=== PATIENT | male | born 1955 | race Caucasian/White ===

== ENCOUNTER 2017-01-10 12:10 | Emergency (ER) | payer OTHER ==
[~2017-01-10] VITALS: Ht 193 cm; Wt 106.6 kg
[~2017-01-10 12:10] MED LIST: FENO160T PO; FINA5TAB PO; GLIM4TAB2 PO; LEVO500T38 PO; LISI1TAB7 PO; METF500T4 PO; SIMV40TA3 PO; TAMS0.4C97 PO
[2017-01-10] MEDS ORDERED: MECLIZINE HCL 12.5 MG TABLET. PO ONE (13:00)
[2017-01-10] MEDS ORDERED: IV NORMAL SALINE 500ML BAG 500 ML IV ONE (13:00)
[2017-01-10 13:03] LABS: BASO % 0 % (0-3); EOS % 1 % (0-3); HEMATOCRIT 40.8 % (39.0-53.0); LYMPH % 13 % (24-48); MEAN CORPUSCULAR HEMOGLOBIN 28 pg (25-35); MEAN CORPUSCULAR HGB CONC 34 g/dL (31-37); MEAN CORPUSCULAR VOLUME 80 fL (79-100); MONO % 5 % (0-9); NEUT % 81 % (31-73); PLATELET COUNT 154 x10^3/uL (140-400); RED BLOOD COUNT 5.07 x10^6/uL (4.30-5.70); RED CELL DISTRIBUTION WIDTH 13.5 % (11.5-14.5); WHITE BLOOD COUNT 8.3 x10^3/uL (4.0-11.0)
[2017-01-10 13:08] LABS: CALCIUM 9.1 mg/dL (8.5-10.1); CREATININE 0.8 mg/dL (0.7-1.3); POTASSIUM 3.8 mmol/L (3.5-5.1)
--- NOTE | 2017-01-10 13:14 | EKG ---
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
[2017-01-10 13:15] LABS: ALBUMIN 4.2 g/dL (3.4-5.0); DIRECT BILIRUBIN 0.2 mg/dL (0.0-0.2); TOTAL BILIRUBIN 0.7 mg/dL (0.2-1.0); TOTAL PROTEIN 6.9 g/dL (6.4-8.2)
--- NOTE | 2017-01-10 13:29 | RAD ---
Clinical Indication: Vertigo Technique: Study is dated January 10, 2017. CT images of the head were obtained from the skull base to the vertex without IV contrast. Comparison is from February 07, 2005. One or more of the following individualized dose reduction techniques were utilized for this examination: 1. Automated exposure control 2. Adjustment of the mA and/or kV according to patient size 3. Use of iterative reconstruction technique Findings: There is diffuse, symmetric prominence of the ventricles and subarachnoid spaces consistent with age-related parenchymal volume loss. There are areas of scattered decreased attenuation in the supratentorial white matter. While nonspecific, findings are likely secondary to minimal small vessel ischemic disease. There is no hemorrhage, extraaxial fluid collection, mass, or midline shift. There is no large vascular distribution infarct. The posterior fossa and brain stem are unremarkable. Orbits are normal. There is right maxillary mucosal thickening. Maxillary sinuses are small. Deformity of the anterior wall of the frontal sinuses and nasal bone may be sequela of remote trauma. There is no skull fracture appreciated on bone level images. Impression: No acute intracranial findings. Brain parenchymal volume loss and probable small vessel ischemic disease.
[2017-01-10 13:30] VITALS: BP 145/81
--- NOTE | 2017-01-10 13:30 | RAD ---
Indication: Dizziness, lightheadedness, nausea and vomiting. Technique: Upright portable chest radiograph was obtained. No comparison is available. Findings: The lungs are clear. The cardiopulmonary silhouette is within normal limits. There is atheromatous disease in the thoracic aorta. Leads overlie the patient. There are degenerative changes in the shoulders. Impression: No active pulmonary disease.
[2017-01-10 14:06] LABS: BILIRUBIN,URINE NEGATIVE (NEG); GLUCOSE,URINE NEGATIVE (NEG); NITRITE,URINE NEGATIVE (NEG); PH,URINE 6.5; PROTEIN,URINE NEGATIVE (NEG-TRACE)
--- NOTE | 2017-01-10 14:20 | PHYS DOC ---
Past Medical History Past Medical History: Diabetes-Type II, Hypertension, Other Additional Past Medical Histor: enlarged prostate Past Surgical History: Cholecystectomy Additional Past Surgical Histo: herniated disc Alcohol Use: Rarely Drug Use: None Adult General Chief Complaint Chief Complaint: DIZZY/LIGHT HEADED HPI HPI 61-year-old male presenting to the emergency department today with vertigo. He also complains of nausea with vomiting. His vomitus is nonbloody and nonbilious. His blood sugar was mildly elevated in clinic. He was sent here for further evaluation workup and care. His symptoms started earlier this morning around 8 AM. He describes the room is spinning. Ice it being sudden in onset. He denies any history of stroke in the past. He does have a history of diabetes and high blood pressure. Review of systems is negative for chest pain shortness of breath fevers chills nausea vomiting. All other review of systems is negative unless otherwise noted in history of present illness. Review of Systems Review of Systems SEE ABOVE. Current Medications Current Medications Current Medications Medications (Trade) Dose Ordered Sig/Collin Start Time Stop Time Status Last Admin Dose Admin Meclizine HCl 25 mg 25 mg 1X ONCE 01/10/17 13:00 01/10/17 13:01 DC 01/10/17 13:07 25 MG Sodium Chloride (Iv Sodium Chloride 0.9% 500ml Bag) 500 ml @ 500 mls/hr 1X ONCE 01/10/17 13:00 01/10/17 13:59 DC 01/10/17 13:08 500 MLS/HR Allergies Allergies Allergies Coded Allergies Type Severity Reaction Last Updated Verified No Known Drug Allergies 05/21/16 No Physical Exam Physical Exam Constitutional: Well developed, well nourished, no acute distress, non-toxic appearance. HENT: Normocephalic, atraumatic, bilateral external ears normal, oropharynx moist, no oral exudates, nose normal. [] Eyes: PERRLA, EOMI, conjunctiva normal, no discharge. Neck: Normal range of motion, no tenderness, supple, no stridor. [] Cardiovascular:Heart rate regular rhythm, no murmur Lungs & Thorax: Bilateral breath sounds clear to auscultation [] Abdomen: Bowel sounds normal, soft, no tenderness, no masses, no pulsatile masses. Skin: Warm, dry, no erythema, no rash. Back: No tenderness, no CVA tenderness. [] Extremities: No tenderness, no cyanosis, no clubbing, ROM intact, no edema. [] Neurologic: Mental status: Awake oriented and alert x3 Cranial nerves: Extraocular movements intact, eyebrows louann bilaterally smile symmetric, uvula elevation, shoulder shrug intact, tongue protrusion normal Lateral rotatory nystagmus present upon right and left lateral gaze. This also reproduces patient's symptoms. DTRs: 2+ Sensation: equal and normal in all extremities Strength: 5/5 in upper and lower extremities bilaterally Cerebellar: No dysdiadochokinesia present. Normal pame-um-lqaa present. Patient is able to walk on toes and heels. HINTS testing performed not suggestive of posterior stroke. no skew. Abnormal head impulse testing (expected in peripheral vertigo). Psychologic: Affect normal, judgement normal, mood normal. Current Patient Data Vital Signs Vital Signs Date Time Temp Pulse Resp B/P Pulse Ox O2 Delivery O2 Flow Rate FiO2 01/10/17 13:30 68 13 145/81 97 Room Air 01/10/17 12:17 98 98.0 Lab Values Laboratory Tests Test 01/10/17 12:35 01/10/17 13:56 White Blood Count 8.3x10^3/uL (4.0-11.0) Red Blood Count 5.07x10^6/uL (4.30-5.70) Hemoglobin 14.0g/dL (13.0-17.5) Hematocrit 40.8% (39.0-53.0) Mean Corpuscular Volume 80fL (79-100) Mean Corpuscular Hemoglobin 28pg (25-35) Mean Corpuscular Hemoglobin Concent 34g/dL (31-37) Red Cell Distribution Width 13.5% (11.5-14.5) Platelet Count 154x10^3/uL (140-400) Neutrophils (%) (Auto) 81% (31-73) H Lymphocytes (%) (Auto) 13% (24-48) L Monocytes (%) (Auto) 5% (0-9) Eosinophils (%) (Auto) 1% (0-3) Basophils (%) (Auto) 0% (0-3) Neutrophils # (Auto) 6.7x10^3uL (1.8-7.7) Lymphocytes # (Auto) 1.0x10^3/uL (1.0-4.8) Monocytes # (Auto) 0.4x10^3/uL (0.0-1.1) Eosinophils # (Auto) 0.1x10^3/uL (0.0-0.7) Basophils # (Auto) 0.0x10^3/uL (0.0-0.2) Sodium Level 141mmol/L (136-145) Potassium Level 3.8mmol/L (3.5-5.1) Chloride Level 104mmol/L (98-107) Carbon Dioxide Level 28mmol/L (21-32) Anion Gap 9 (6-14) Blood Urea Nitrogen 17mg/dL (8-26) Creatinine 0.8mg/dL (0.7-1.3) Estimated GFR (Cockcroft-Gault) 98.0 Glucose Level 210mg/dL (70-99) H Calcium Level 9.1mg/dL (8.5-10.1) Total Bilirubin 0.7mg/dL (0.2-1.0) Direct Bilirubin 0.2mg/dL (0.0-0.2) Aspartate Amino Transferase (AST) 35U/L (15-37) Alanine Aminotransferase (ALT) 49U/L (16-63) Alkaline Phosphatase 48U/L (46-116) Troponin I Quantitative < 0.017ng/mL (0.000-0.055) Total Protein 6.9g/dL (6.4-8.2) Albumin 4.2g/dL (3.4-5.0) Lipase 94U/L (73-393) Urine Collection Type Unknown Urine Color Yellow Urine Clarity Clear Urine pH 6.5 Urine Specific Sharon 1.025 Urine Protein Negativemg/dL (NEG-TRACE) Urine Glucose (UA) Negativemg/dL (NEG) Urine Ketones (Stick) Negativemg/dL (NEG) Urine Blood Negative (NEG) Urine Nitrite Negative (NEG) Urine Bilirubin Negative (NEG) Urine Urobilinogen Dipstick 1.0mg/dL (0.2 mg/dL) Urine Leukocyte Esterase Negative (NEG) Urine RBC 0/HPF (0-2) Urine WBC 1-4/HPF (0-4) Urine Bacteria 0/HPF (0-FEW) Urine Mucus Slight/LPF Laboratory Tests 01/10/17 12:35 Laboratory Tests 01/10/17 12:35 EKG EKG [] Radiology/Procedures Radiology/Procedures [] Course & Med Decision Making Course & Med Decision Making Pertinent Labs and Imaging studies reviewed. (See chart for details) [] 61-year-old male presenting to the emergency department today with vertigo symptoms suggestive of lateral or peripheral vertigo. He was provided with medications the emergency department. On reevaluation he improved significantly. He was able to walk in the emergency department without difficulty and reported resolution of the patient's symptoms. He was subsequent discharged home to follow-up with his primary care physician over the next 2 days. Dragon Disclaimer Dragon Disclaimer This electronic medical record was generated, in whole or in part, using a voice recognition dictation system. Departure Departure Impression: Primary Impression: Vertigo Disposition: 01 HOME, SELF-CARE Condition: STABLE Referrals: MADELINE BANGURA Jr, MD (PCP) LISBETH HARRELL MD neurology Patient Instructions: Dizziness Additional Instructions: Thank you for allowing us to participate in your care today. Followup with your primary care physician in 3 days if your symptoms do not improve. If you do not have a primary care provider you can ask for a list of our primary care providers. Return to the emergency department you have any new or concerning findings. This should be evaluated by the primary care physician and any necessary consulting services for continued management within a few days after discharge. Return to emergency room if you have any new or concerning symptoms including but not limited to fever, chills, nausea, vomiting, intractable pain, any new rashes, chest pain, shortness of air, uncontrolled bleeding, difficulty breathing, and/or vision loss. You may have been prescribed medication that can change in your level of thinking and ability to operate machinery. These medications include hydrocodone and Ativan. Also, Benadryl has been known to do this as well. Be sure to check with your pharmacist and ask if the medications you've prescribed can affect your level of consciousness. I recommend not operating heavy machinery or driving while on medication such as these. Scripts Meclizine Hcl 25 Mg [id number] Mg PO PRN Q24HRS PRN DIZZINESS #10 TAB Prov:GUS MORIN MD 01/10/17 GUS MORIN MD Jan 10, 2017 14:20
[2017-01-10] MEDS ORDERED: MECL25TA3 PO (14:29)
[2017-01-10 15:01] LABS: BACTERIA,URINE 0 /HPF (0-FEW); RBC,URINE 0 /HPF (0-2)
== END 2017-01-10 14:40 | disposition home or self-care (01) ==
LOC: ER 12:10
DX: R42 Dizziness and giddiness (principal); I10 Essential (primary) hypertension; E11.9 Type 2 diabetes mellitus without complications; N40.0 Benign prostatic hyperplasia without lower urinary tract symptoms; Z90.49 Acquired absence of other specified parts of digestive tract; Z98.890 Other specified postprocedural states
CPT/HCPCS: 36415; 70450; 71010; 80048; 80076; 81001; 83690; 84484; 85027; 93005; 96360; 99285; J7040; J8597